=== PATIENT | male | born 1940 | race Caucasian/White ===

== ENCOUNTER 2018-01-01 16:46 | Emergency (ER) | payer MEDICARE, OTHER ==
[~2018-01-01] VITALS: Ht 185.4 cm; Wt 90.7 kg
[~2018-01-01 16:46] MED LIST: ASPI-482 PO; CARV25TA2 PO; CHOL500045 PO; ESOM40CA25 PO; EZET10TA18 PO; FOLI1TAB16 PO; OLME20TA17 PO; VIT1CAPS PO
[2018-01-01 16:55] VITALS: BP 156/98
[2018-01-01] MEDS ORDERED: DIPHTH,PERTUSS(ACELL),TET TOX 0.5 ML DISP.SYRIN. VAX IM ONE (17:00)
--- NOTE | 2018-01-01 17:09 | PHYS DOC ---
Past History Past Medical History: Asthma, CAD, CHF, High Cholesterol, Hypertension Past Surgical History: Pacemaker Smoking: Non-smoker Alcohol Use: None Drug Use: None Adult General Chief Complaint Chief Complaint: LACERATION/AVULSION HPI HPI 77-year-old male patient state he injured his right lower extremity with a doorknob while remodeling his kitchen and a door fell on his lower extremity. Patient denies other injuries and focal neurodeficit. Patient states he has neuropathy and wanted to make sure everything is fine. The patient is not up-to- date with his tetanus immunization. Review of Systems Review of Systems Constitutional: Denies fever or chills [] Eyes: Denies change in visual acuity, redness, or eye pain [] HENT: Denies nasal congestion or sore throat [] Respiratory: Denies cough or shortness of breath [] Cardiovascular: No additional information not addressed in HPI [] GI: Denies abdominal pain, nausea, vomiting, bloody stools or diarrhea [] : Denies dysuria or hematuria [] Musculoskeletal: Denies back pain or joint pain [] Integument: Denies rash or skin lesions, reports laceration [] Neurologic: Denies headache, focal weakness or sensory changes [] Endocrine: Denies polyuria or polydipsia [] All other systems were reviewed and found to be within normal limits, except as documented in this note. Allergies Allergies Allergies Coded Allergies Type Severity Reaction Last Updated Verified procaine Allergy Severe angioedema 03/09/14 No Physical Exam Physical Exam Constitutional: Well developed, well nourished, mild distress, non-toxic appearance. [] HENT: Normocephalic, atraumatic Eyes: PERRLA, EOMI, conjunctiva normal, no discharge. [] Neck: Normal range of motion, no tenderness, supple, no stridor. [] Cardiovascular:Heart rate regular rhythm, no murmur [] Lungs & Thorax: Bilateral breath sounds clear to auscultation [] Skin: Warm, dry, no erythema, no rash. [] Back: No tenderness, no CVA tenderness. [] Extremities: No tenderness, no cyanosis, no clubbing, ROM intact, no edema, 5 cm superficial laceration and abrasion of right lower extremity medial side of leg without tenderness or active bleeding. [] Neurologic: Alert and oriented X 3, normal motor function, normal sensory function, no focal deficits noted. [] Psychologic: Affect normal, judgement normal, mood normal. [] Current Patient Data Vital Signs Vital Signs Date Time Temp Pulse Resp B/P (MAP) Pulse Ox O2 Delivery O2 Flow Rate FiO2 01/01/18 16:55 97.7 60 18 96 Room Air EKG EKG [] Radiology/Procedures Radiology/Procedures [] Course & Med Decision Making Course & Med Decision Making Pertinent Labs and Imaging studies reviewed. (See chart for details) [] Dragon Disclaimer Dragon Disclaimer discharge: I've spoken with the patient and/or caregivers. I've explained the patient's condition, diagnosis and treatment plan based on information available to me at this time. I've answered the patient's and/or caregivers questions and addressed any concerns. The patient and/or caregivers have a good understanding the patient's diagnosis, condition and treatment plan as can be expected at this point. Vital signs have been stabilized. The patient's condition is stable for discharge from the emergency department. The patient will pursue further outpatient evaluation with her primary care provider or other designated consulting physician as outlined in the discharge instructions. Patient and/or caregivers are agreeable to this plan of care and follow-up instructions have been explained in detail. The patient and/or caregivers have received these instructions in written format and expressed understanding of these discharge instructions. The patient and her caregivers are aware that if any significant change in condition or worsening of symptoms should prompt him to immediately return to this of the closest emergency department. If an emergent department is not readily available I would encourage him to call 911. Laceration Repair Lac Repair Indication: []Right Leg laceration and] Abrasion] Procedure: The patient was placed in the appropriate position and decreasing and tearful with Dermabond and Steri-Strip was applied on 5 cm laceration of rightleg. Total repaired wound length: [5]. Other Items: [OTHER ITEMS] The patient tolerated the procedure [well]. Complications: [none]. Departure Departure: Impression: Primary Impression: Abrasion, right lower leg, initial encounter Disposition: HOME, SELF-CARE Condition: IMPROVED Referrals: HARRISON GÓMEZ MD (PCP) Patient Instructions: Tissue Adhesive Wound Care Additional Instructions: Keep wound clean and dry Follow-up with your primary care physician in 3-5 days Return to ER if not getting better ADRIÁN MAS MD Jan 01, 2018 17:09
== END 2018-01-01 17:18 | disposition home or self-care (01) ==
LOC: ER 16:46
DX: S80.811A Abrasion, right lower leg, initial encounter (principal); J45.909 Unspecified asthma, uncomplicated; I11.0 Hypertensive heart disease with heart failure; I50.9 Heart failure, unspecified; E78.00 Pure hypercholesterolemia, unspecified; I25.10 Atherosclerotic heart disease of native coronary artery without angina pectoris; Z95.0 Presence of cardiac pacemaker; Z88.4 Allergy status to anesthetic agent; W20.8XXA Other cause of strike by thrown, projected or falling object, initial encounter; Y93.89 Activity, other specified; Y92.89 Other specified places as the place of occurrence of the external cause; Y99.8 Other external cause status
CPT/HCPCS: 12002; 90471; 90715; 99283-25

== ENCOUNTER 2020-12-13 14:36 | Emergency (ER) | payer MEDICARE, OTHER ==
[~2020-12-13] VITALS: Ht 185.4 cm; Wt 72.7 kg
[~2020-12-13 14:36] MED LIST changes: -EZET10TA18 PO; +EZET10TA20 PO
[2020-12-13 15:27] VITALS: BP 137/72
--- NOTE | 2020-12-13 16:03 | RAD ---
CT CERVICAL SPINE WO DATE: 12/13/2020 3:30 PM INDICATION: NECK PAIN TECHNIQUE: Noncontrast CT of the cervical spine was performed. Sagittal and coronal reformats were pe rformed and evaluated. One or more of the following dose reduction techniques were utilized: Automat ed exposure control (AEC), Adjustment of mA and/or kV according to patient size, Use of iterative rec onstruction technique such as ASiR, CT scan done according to ALARA and image gently/image wisely COMPARISON: None. FINDINGS: The cervical spine is normally aligned. No acute fracture. No aggressive lytic or blastic osseous les ions. Moderate multilevel degenerative disc space height loss. Multilevel spinal canal stenosis secondary t o disc protrusions and marginal osteophytes, worst and severe at C3-4 and C5-6. Multilevel neuroforam inal narrowing secondary to uncovertebral arthrosis, worst and moderate to severe at C3-4 bilaterally , C5-6 bilaterally, and C6-7 bilaterally. Multilevel moderate facet arthrosis. The thyroid gland is normal. No cervical lymphadenopathy. Bilateral carotid atherosclerosis. The visu alized aerodigestive tract is normal. The visualized portions of the lungs are clear. IMPRESSION: 1. No acute fracture or dislocation. 2. Advanced degenerative cervical spondylosis with severe spinal canal stenosis at C3-4 and C5-6. Electronically signed by: Jc Jaramillo MD (12/13/2020 4:00 PM) [facility]
--- NOTE | 2020-12-13 16:05 | PHYS DOC ---
Past History Past Medical History: Asthma, CAD, CHF, High Cholesterol, Hypertension Past Surgical History: Pacemaker Smoking: Non-smoker Alcohol Use: None Drug Use: None Adult General Chief Complaint Chief Complaint: Neck Pain HPI HPI Patient is a 79-year-old male presenting for neck pain. Initially was seen and evaluated at local urgent care but was referred to our facility as they could not perform/order CT imaging of neck. Patient reports 4 days ago catching his falling , denies falling himself, did not hit his head or lose consciousness. Reports he feels like he strained the left side of his neck. Given the pain, patient reports sleeping in recliner the following 2 nights a fter the episode. Presents today for evaluation given ongoing left-sided neck pain. Denies any motor, sensory or neurologic changes Review of Systems Review of Systems Fourteen body systems of review of systems have been reviewed. See HPI for pertinent positives and negative responses, other dickens all other systems are negative, non-pertinent or non-contributory Allergies Allergies Allergies Coded Allergies Type Severity Reaction Last Updated Verified procaine Allergy Severe angioedema 03/09/14 No Physical Exam Physical Exam Constitutional: Well developed, well nourished, no acute distress, non-toxic appearance. HENT: Normocephalic, atraumatic, bilateral external ears normal, oropharynx moist, no oral exudates, nose normal. Eyes: PERRLA, EOMI, conjunctiva normal, no discharge. Neck: No midline tenderness or step-offs, supple, no stridor, compartment soft, patient does have impaired active range of motion when rotating to the right due to tenderness over left trapezius muscle which patient reports is area of greatest restriction Cardiovascular: Heart rate regular, sinus rhythm, no murmurs rubs or gallops Lungs & Thorax: Bilateral breath sounds clear to auscultation Abdomen: Bowel sounds normal, soft, no tenderness, no masses, no pulsatile masses. Nonsurgical abdomen, no peritoneal signs Skin: Warm, dry, no erythema, no rash. Back: No tenderness, no CVA tenderness. Extremities: No tenderness, no cyanosis, no clubbing, ROM intact, no edema. Neurologic: Alert and oriented X 3, grossly normal motor & sensory function, no focal deficits noted. Psychologic: Affect normal, judgement normal, mood normal. Current Patient Data Vital Signs Vital Signs Date Time Temp Pulse Resp B/P (MAP) Pulse Ox O2 Delivery O2 Flow Rate FiO2 12/13/20 15:27 66 18 137/72 (93) 97 EKG EKG [] Radiology/Procedures Radiology/Procedures CT CERVICAL SPINE WO DATE: 12/13/2020 3:30 PM INDICATION: NECK PAIN TECHNIQUE: Noncontrast CT of the cervical spine was performed. Sagittal and coronal reformats were performed and evaluated. One or more of the following dose reduction techniques were utilized: Automated exposure control (AEC), Adjustment of mA and/or kV according to patient size, Use of iterative reconstruction technique such as ASiR, CT scan done according to ALARA and image gently/image wisely COMPARISON: None. FINDINGS: The cervical spine is normally aligned. No acute fracture. No aggressive lytic or blastic osseous lesions. Moderate multilevel degenerative disc space height loss. Multilevel spinal canal stenosis secondary to disc protrusions and marginal osteophytes, worst and severe at C3-4 and C5-6. Multilevel neuroforaminal narrowing secondary to uncovertebral arthrosis, worst and moderate to severe at C3-4 bilaterally, C5-6 bilaterally, and C6-7 bilaterally. Multilevel moderate facet arthrosis. The thyroid gland is normal. No cervical lymphadenopathy. Bilateral carotid atherosclerosis. The visualized aerodigestive tract is normal. The visualized portions of the lungs are clear. IMPRESSION: 1. No acute fracture or dislocation. 2. Advanced degenerative cervical spondylosis with severe spinal canal stenosis at C3-4 and C5-6. Electronically signed by: Jc Jaramillo MD (12/13/2020 4:00 PM) [facility] Heart Score C/O Chest Pain: No Risk Factors: Risk Factors: DM, Current or recent (<one month) smoker, HTN, HLP, family history of CAD, obesity. Risk Scores: Risk Factors: DM, Current or recent (<one month) smoker, HTN, HLP, family history of CAD, obesity. Course & Med Decision Making Course & Med Decision Making Discussed with the patient all findings and diagnostic testing. I discussed most likely diagnosis of left neck/trapezius muscle strain. Injury onset was 4 days prior with mild improvement of symptoms since then without any provided supportive care, as such, patient educated on supportive care practices such as he, gentle stretches and utilizing Tylenol for pain as needed. I stressed need for close outpatient follow-up to review today's ER visit. Strict return precautions were also discussed at length with good understanding by patient. Patient voiced understanding and agreement with the plan. Patient knows to come back for repeat evaluation if concerning signs or symptoms present prior to outpatient follow-up. Hemodynamically stable, ambulatory and well-appearing at time of disposition. Dragon Disclaimer Dragon Disclaimer This electronic medical record was generated, in whole or in part, using a voice recognition dictation system. Departure Departure: Impression: Primary Impression: Neck muscle strain Disposition: HOME / SELF CARE / HOMELESS Condition: STABLE Referrals: HARRISON GÓMEZ MD (PCP) Patient Instructions: Muscle Strain, Soft Tissue Injury of the Neck Additional Instructions: It is likely that you have experienced a sprain/strain to a muscle in your neck that is causing you pain. The best treatment for this injury is continued range of motion to prevent a frozen joint. Tylenol, heat and gentle prior to neck stretches are recommended for pain in the interim until he can be seen by the end of the week by her primary care physician for repeat evaluation. Findings of advanced degenerative cervical spondylosis with severe spinal canal stenosis at C3-4 and C5-6 were discussed for which he will need continued follow-up in outpatient setting and as disclosed, it is unlikely because of today's symptoms based on physical examination. If any concerning signs or symptoms present such as neck stiffness or changes in motor or sensory function in upper extremities present prior to outpatient follow-up please do not hesitate to come back for repeat evaluation. It was a pleasure to take care of you and I wish you the best going forward YE COYLE DO Dec 13, 2020 16:05
== END 2020-12-13 16:31 | disposition home or self-care (01) ==
LOC: ER 14:36
DX: S16.1XXA Strain of muscle, fascia and tendon at neck level, initial encounter (principal); I11.0 Hypertensive heart disease with heart failure; I50.9 Heart failure, unspecified; J45.909 Unspecified asthma, uncomplicated; I25.10 Atherosclerotic heart disease of native coronary artery without angina pectoris; E78.00 Pure hypercholesterolemia, unspecified; Z95.0 Presence of cardiac pacemaker; Z88.5 Allergy status to narcotic agent; X50.9XXA Other and unspecified overexertion or strenuous movements or postures, initial encounter; Y93.89 Activity, other specified; Y92.89 Other specified places as the place of occurrence of the external cause; Y99.8 Other external cause status
CPT/HCPCS: 72125; 99284